=== PATIENT | male | born 1975 | race African-American/Black ===

== ENCOUNTER 2018-03-30 15:08 | Outpatient (CLI) ==
[2015-12-19 08:58] VITALS: BMI 38.2
--- NOTE | 2018-03-30 15:41 | DI ---
EXAM: Sinus series three views HISTORY: Sinus infection. FINDINGS: The paranasal sinuses revealed no convincing evidence of mucosal thickening, opacification and there are no obvious air fluid levels. Regional bony structures are within normal limits. IMPRESSION: No plain radiographic evidence of acute or chronic sinusitis.
== END 2018-03-30 15:09 | disposition home or self-care (01) ==
LOC: RAD 15:08
PROVIDERS: ATTEND Family Medicine
DX: J01.90 Acute sinusitis, unspecified (principal)